=== PATIENT | male | born 1995 | race Two or more races ===

== ENCOUNTER 2018-10-01 21:42 | Emergency (ER) | payer OTHER ==
[~2018-10-01] VITALS: Ht 175.3 cm; Wt 72.6 kg
[2018-10-01] MEDS ORDERED: CLINDAMYCIN PHOSPHATE IV 600 MG in IV DEXTROSE 5% 100 ML IV ONE (22:15)
[2018-10-01] MEDS ORDERED: IV NORMAL SALINE 1000 ML BAG IV ONE (22:15)
[2018-10-01] MEDS ORDERED: CEFTRIAXONE 1 G in IV DEXTROSE 5% 50 ML IV ONE (22:15)
[2018-10-01] MEDS ORDERED: KETOROLAC TROMETHAMINE 15 MG INJ IVP ONE (22:15)
[2018-10-01] MEDS ORDERED: DEXAMETHASONE SOD PHOSPHATE 4 MG INJ IV ONE (22:15)
[2018-10-01] MEDS ORDERED: METOCLOPRAMIDE HCL 10 MG/2 ML VIAL IV ONE (22:15)
[2018-10-01] MEDS ORDERED: KETOROLAC TROMETHAMINE 15 MG INJ ONE (22:29)
[2018-10-01] MEDS ORDERED: CLINDAMYCIN PHOSPHATE 600 MG/4 ML VIAL ONE (22:29)
[2018-10-01] MEDS ORDERED: METOCLOPRAMIDE HCL 10 MG/2 ML VIAL ONE (22:30)
[2018-10-01] MEDS ORDERED: DEXAMETHASONE SOD PHOSPHATE 10 MG INJ ONE (22:30)
[2018-10-01] MEDS ORDERED: CEFTRIAXONE 1 G VIAL ONE (22:30)
[2018-10-01 22:41] LABS: BASOPHILS % (AUTO) 0.3 % (0.0-2.0); EOSINOPHILS % (AUTO) 4.5 % (0.0-7.0); HEMATOCRIT 26.2 % (36.7-47.1); HEMOGLOBIN 9.5 g/dL (12.5-16.3); LYMPHOCYTES % (AUTO) 26.5 % (20.5-51.5); MEAN CORPUSCULAR HEMOGLOBIN 34.2 uug (23.8-33.4); MEAN CORPUSCULAR HGB CONC 36 g/dL (32.5-36.3); MEAN CORPUSCULAR VOLUME 94.3 fL (73.0-96.2); MONOCYTES % (AUTO) 6.9 % (0.0-11.0); NEUTROPHILS % (AUTO) 61.8 % (38.5-71.5); PLATELET COUNT (AUTO) 265 K/uL (152-348); RED BLOOD CELL COUNT(AUTO) 2.77 MIL/uL (4.06-5.63); WHITE BLOOD COUNT (AUTO) 7.8 K/uL (3.6-10.2)
[2018-10-01 22:42] LABS: EOSINOPHILS # (AUTO) 0.3 K/uL (0.0-0.7); LYMPHOCYTES # (AUTO) 2.1 K/uL (20.0-40.0); MONOCYTES # (AUTO) 0.5 K/uL (2.0-10.0); NEUTROPHILS # (AUTO) 4.9 K/uL (1.8-8.9)
[2018-10-01] MEDS ORDERED: SWABABLE VALVE TRANSFER SET EA MC ONE (22:43)
[2018-10-01] MEDS ORDERED: IOHEXOL 300MG/ML 100 ML INFUS..BTL ONE (22:43)
[2018-10-01] MEDS ORDERED: IV NORMAL SALINE 250 ML IV ONE (22:43)
[2018-10-01] MEDS ORDERED: NORMAL SALINE FLUSH 10 ML DISP.SYRIN ONE (22:43)
[2018-10-01 22:47] LABS: CREATININE 0.8 mg/dL (0.6-1.3); POTASSIUM 3.6 mmol/L (3.5-5.1)
[2018-10-01 22:53] LABS: BILIRUBIN,DIRECT 0.3 mg/dL (0.0-0.2); BILIRUBIN,TOTAL 1.3 mg/dL (0.2-1.0); TOTAL PROTEIN, SERUM 6.4 g/dL (6.4-8.2)
[2018-10-01] MEDS ORDERED: diphenhydrAMINE 50 MG/1 ML VIAL IV ONE (23:45)
[2018-10-01] MEDS ORDERED: diphenhydrAMINE 50 MG/1 ML VIAL ONE (23:49)
--- NOTE | 2018-10-01 23:50 | NUR ---
JOSÉ MIGUEL speaking with Dr. Caldera (PT PLASTIC SURGEON) Addendum: 10/01/18 at [address] Caldera, [place]
--- NOTE | 2018-10-02 00:41 | NUR ---
Patient discharged to home in stable conditon. Written and verbal after care instructions given. Patient verbalizes understanding of instructions.
== END 2018-10-02 00:44 | disposition home or self-care (01) ==
LOC: ER 21:44
DX: G89.18 Other acute postprocedural pain (principal); R11.0 Nausea; R42 Dizziness and giddiness; R63.0 Anorexia
CPT/HCPCS: 36415; 70487; 80048; 80076; 83605; 84484; 85025; 85730; 86850; 86900; 86901; 87040 ×2; 96365; 96368; 96375; 99284; J0696; J1100; J1200; J1885; J2765; J3490; J7060 ×2; Q9967; 70030-TC; A4663; J7030; J7050

== ENCOUNTER 2019-09-11 | Emergency (ER) | payer OTHER ==
[~2019-09-11] VITALS: Ht 175.3 cm; Wt 72.6 kg
--- NOTE | 2019-09-11 00:01 | NUR ---
patient came from home with chief complaint of pain to left mandible location. patient stated is peña not radiate. patient VSS. patient a/o x4.
--- NOTE | 2019-09-11 00:21 | NUR ---
Patient discharged to home in stable conditon. Written and verbal after care instructions given. Patient verbalizes understanding of instructions. VSS stable for discharge. Patient a/o x4. patient self ambulatory with steady gait. Patient exit care package and personal belongings taken home with the patient at discharge.
[2019-09-11 00:22] VITALS: BP 129/81
== END 2019-09-11 00:23 | disposition home or self-care (01) ==
LOC: ER 00:01
DX: K02.9 Dental caries, unspecified (principal); F17.200 Nicotine dependence, unspecified, uncomplicated
CPT/HCPCS: A4663

== ENCOUNTER 2019-09-28 06:53 | Emergency (ER) | payer OTHER ==
[~2019-09-28] VITALS: Ht 175.3 cm; Wt 74.8 kg
[2019-09-28] MEDS ORDERED: HYDR-4354 PO (07:06)
[2019-09-28] MEDS ORDERED: TRANEXAMIC ACID 1,000 MG/10 ML VIAL ONE (07:41)
[2019-09-28] MEDS ORDERED: TRANEXAMIC ACID 1,000 MG/10 ML VIAL IR ONE (07:45)
[2019-09-28] MEDS ORDERED: HYDROCODONE/APAP 10-325 MG TABLET ONE (07:50)
[2019-09-28] MEDS ORDERED: HYDROCODONE/APAP 10-325 MG TABLET PO ONE (08:00)
--- NOTE | 2019-09-28 08:15 | NUR ---
PT WAS EVALUATED BY DR RAMIREZ. PT WAS D/C'd TO HOME. D/C INSTRUCTIONS GIVEN TO THE PT.
[2019-09-28 08:16] VITALS: BP 123/74
== END 2019-09-28 08:16 | disposition home or self-care (01) ==
LOC: ER 06:57
DX: K08.89 Other specified disorders of teeth and supporting structures (principal); F17.200 Nicotine dependence, unspecified, uncomplicated; Z79.899 Other long term (current) drug therapy
CPT/HCPCS: A4663